=== PATIENT | female | born 1960 | race Caucasian/White ===

== ENCOUNTER → 2016-11-02 09:40 | Outpatient (CLI) | payer BC ==
[2013-10-16 06:16] VITALS: BMI 33.7
[~2016-11-02 09:40] MED LIST: ENJUVIA0.45 MG PO; HYDROCODONE-APA1 TAB PO; LEVOTHROID75 MCG PO; MOBIC7.5 MG PO; PREDNISONE1 MG
== END | disposition home or self-care (01) ==
LOC: D.MRI 09:40
DX: M23.52 Chronic instability of knee, left knee (principal)

== ENCOUNTER 2016-11-20 11:28 | Outpatient (CLI) | payer BC ==
[2013-10-16 06:16] VITALS: BMI 33.7
== END 2016-11-20 11:56 ==
LOC: D.MAMMO 11:28
DX: Z12.31 Encounter for screening mammogram for malignant neoplasm of breast (principal)

== ENCOUNTER → 2018-04-22 20:51 | Outpatient (CLI) | payer BC ==
[2013-10-16 06:16] VITALS: BMI 33.7
[~2018-04-22 20:51] MED LIST changes: +AMOXICILLIN500 M1 PO; +ROBAXIN500 MG PO
== END | disposition home or self-care (01) ==
LOC: D.MAMMO 16:00
DX: Z12.31 Encounter for screening mammogram for malignant neoplasm of breast (principal)

== ENCOUNTER 2018-05-08 10:56 | Day surgery (SDC) | payer BC ==
[~2018-05-08] VITALS: Ht 160 cm; Wt 88.6 kg
--- NOTE | ~2018-05-08 | OP ---
PATIENT NAME: CAT NEGRON MEDICAL RECORD: [id number] :58 LOCATION:[facility] ADMISSION DATE: SURGEON: ALLIE ALFARO MD DATE OF OPERATION: 05/08/2018 PROCEDURE: Colonoscopy with biopsy, colonoscopy with polypectomy. CIRCULATION DIRECTOR: Allie Alfaro MD SCOPE: Olympus video colonoscope. MEDICATIONS: Per TIVA. The patient received 350 mg of propofol for this procedure, O2 4 liters. INDICATION FOR THE PROCEDURE: History of colon polyps, last procedure was in 2012 significant for removal of a polyp at 45 cm, 1 cm in size, removed with hot biopsy forcep technique and the pathology revealed that this was a hyperplastic polyp. The patient also had very mild pandiverticulosis without diverticulitis as well as hemorrhoids. She is asymptomatic from a GI standpoint and having a screening colonoscopy with her history of polyps. FINDINGS: Informed consent was given. The patient was made comfortable with the above medications. After reaching an adequate level of sedation by slow IV push, the patient was placed on her left side. The rectal exam revealed good sphincter tone. No fissures or fistulas were appreciated. No external skin tags were seen. The colonoscope was advanced to the cecum where the ileocecal valve and appendiceal orifice were identified. The prep was adequate. On withdrawal of the scope, mucosa was carefully inspected. The patient was noted to have some very mild pandiverticulosis without diverticulitis. In the rectal vault, 2 small benign 0.5 cm polyps were seen and removed with hot biopsy forceps technique. The patient also had some mild inflammation within the rectal vault and a biopsy was obtained. Internal hemorrhoids were also appreciated. The scope was then withdrawn. IMPRESSION: 1. Normal cecum, normal appendiceal orifice. 2. Very mild pandiverticulosis without diverticulitis. 3. Two small 0.5 cm polyps removed with hot biopsy forceps technique. 4. Very mild benign appearing inflammation within the rectal vault, biopsied. 5. Internal hemorrhoids. PLAN: 1. No aspirin, no anti-inflammatory drugs times 14 days. 2. High fiber diet. 3. Return to clinic on a p.r.n. basis. 4. Probiotics. TRANSINT:[id number] Voice Confirmation ID: [id number] DOCUMENT ID: [id number] OPERATIVE REPORT [id number] HALPAIN YOUNG,ALLIE ALEJO MD CC: NAYELY VALENZUELA MD [id number] DICTATION DATE: 05/08/18 1257 [employer]UTION[employer] PROFESSOR: 05/08/18 1419 [id number] [place] [address]
[~2018-05-08 10:56] MED LIST changes: -AMOXICILLIN500 M1 PO; -ROBAXIN500 MG PO
[2018-05-08 11:19] LABS: HEMATOCRIT 40.3 % (36.0-48.0); HEMOGLOBIN 13.2 g/dL (12-16); MCH 29.3 pg (26.0-34.0); MCHC 32.8 g/dL (31.0-37.0); MCV 89.4 fL (80.0-100.0); RBC 4.51 10x6/uL (4.00-5.40); RDW 13.6 % (11.5-14.5)
[2018-05-08] MEDS ORDERED: ROBAXIN500 MG PO (11:54)
[2018-05-08] MEDS ORDERED: MOBIC7.5 MG PO (11:54)
[2018-05-08 12:12] VITALS: BP 152/90; Ht 160 cm; Wt 88.6 kg
[2018-05-08] MEDS ORDERED: AMOXICILLIN500 M1 PO (12:17)
== END 2018-05-08 13:56 | disposition home or self-care (01) ==
LOC: D.OPS 10:56
PROVIDERS: Anesthesiology
DX: K57.30 Diverticulosis of large intestine without perforation or abscess without bleeding (principal); K62.1 Rectal polyp; K64.8 Other hemorrhoids; Z86.010 Personal history of colon polyps; Z01.812 Encounter for preprocedural laboratory examination

== ENCOUNTER → 2019-10-15 09:00 | Outpatient (CLI) | payer BC ==
[~2019-10-15 09:00] MED LIST changes: +AMOXICILLIN500 M1 PO; +ROBAXIN500 MG PO
== END | disposition home or self-care (01) ==
LOC: D.MAMMO 08-25 08:00
PROVIDERS: ATTEND Family Medicine
DX: Z12.31 Encounter for screening mammogram for malignant neoplasm of breast (principal)

== ENCOUNTER 2019-10-22 09:00 | Outpatient (CLI) | payer BC | END 2019-10-22 10:00 | disposition home or self-care (01) | LOC: D.MAMMO 09:00 | PROVIDERS: ATTEND Family Medicine | DX: R92.8 Other abnormal and inconclusive findings on diagnostic imaging of breast (principal) ==

== ENCOUNTER → 2020-02-17 07:30 | Outpatient (CLI) | payer BC | END | disposition home or self-care (01) | LOC: D.US 07:30 | PROVIDERS: ATTEND Family Medicine | DX: R10.2 Pelvic and perineal pain (principal) ==